=== PATIENT | male | born 1960 | race Caucasian/White ===

== ENCOUNTER → 2016-11-24 | Outpatient (CLI) | payer MEDICARE ==
[~2016-11-24] MED LIST: COREG3.125 MG PO; LO-DOSE ASPIRIN81 MG PO; SUBOXONE 8 MG-1 EACH SL; SYNTHROID175 MCG PO; ZESTRIL2.5 MG PO; ZOCOR20 MG PO
== END ==
LOC: KOH-I 10:11
DX: M54.5 Low back pain (principal); R05 Cough; M25.532 Pain in left wrist; M25.531 Pain in right wrist; M79.643 Pain in unspecified hand; M47.816 Spondylosis without myelopathy or radiculopathy, lumbar region; M19.032 Primary osteoarthritis, left wrist; M19.031 Primary osteoarthritis, right wrist; M19.041 Primary osteoarthritis, right hand; M19.042 Primary osteoarthritis, left hand; M47.814 Spondylosis without myelopathy or radiculopathy, thoracic region; R91.8 Other nonspecific abnormal finding of lung field
CPT/HCPCS: 71020; 72050; 72070; 72110; 73110; 73130

== ENCOUNTER 2017-02-20 22:26 | Emergency (ER) | payer MEDICARE ==
[2017-02-21 00:26] LABS: HEMOGLOBIN 13.5 gm/dl (14.0-17.5); RED BLOOD COUNT 4.3 M/UL (4.20-5.50); WHITE BLOOD COUNT 9.1 K/UL (4.5-11.0)
[2017-02-21 00:48] LABS: BUN/CREATININE RATIO 10 (0-10)
== END 2017-02-21 01:35 | disposition home or self-care (01) ==
LOC: ER1 22:26
PROVIDERS: Emergency Medicine
DX: S00.83XA Contusion of other part of head, initial encounter (principal); I10 Essential (primary) hypertension; W01.0XXA Fall on same level from slipping, tripping and stumbling without subsequent striking against object, initial encounter
CPT/HCPCS: 36415; 70450; 70486; 71010; 72125; 80053; 82140; 82550; 82553; 83874; 83880; 84484; 85025; 93005; 99284; G0480

== ENCOUNTER 2021-01-19 12:17 | Emergency (ER) | payer OTHER ==
[~2021-01-19 12:17] MED LIST changes: +CATAPRES 0.1MG0.1 MG PO; +FLOMAX0.4 MG PO; +KLONOPIN1 MG PO; +NEURONTIN 300300 MG PO; +SEROQUEL300 MG PO; +THERAGRAN M TAB1 EA PO; +TORADOL 10 MG T10 MG PO; +TYLENOL 325MG325 MG PO; +ZYVOX600 MG PO
[2021-01-19 12:59] LABS: HEMOGLOBIN 8.2 gm/dl (14.0-17.5); RED BLOOD COUNT 2.53 M/UL (4.20-5.50); WHITE BLOOD COUNT 8.4 K/UL (4.5-11.0)
[2021-01-19 13:28] LABS: BUN/CREATININE RATIO 8 (0-10)
== END 2021-01-19 18:25 ==
LOC: ER1 12:17
PROVIDERS: Physician Assistant
DX: J96.91 Respiratory failure, unspecified with hypoxia (principal); I50.41 Acute combined systolic (congestive) and diastolic (congestive) heart failure; F17.200 Nicotine dependence, unspecified, uncomplicated; Z20.822 Contact with and (suspected) exposure to COVID-19; E78.5 Hyperlipidemia, unspecified; Z90.49 Acquired absence of other specified parts of digestive tract
CPT/HCPCS: 0240U; 36600; 71045; 80053; 82550; 82553; 82803; 83874; 83880; 84484; 85025; 93005; 99285

== ENCOUNTER 2021-03-28 02:44 | Inpatient (IN) | payer OTHER ==
[~2021-03-28] VITALS: Ht 167.6 cm; Wt 69.5 kg
[2021-03-29] MEDS ORDERED: LIPITOR40 MG PO (00:07)
[2021-03-29] MEDS ORDERED: SYMBICORT 80-41 INHA INH (00:08)
[2021-03-29] MEDS ORDERED: LASIX20 MG PO (00:08)
[2021-03-29 03:47] LABS: HEMOGLOBIN 10.1 gm/dl (14.0-17.5); RED BLOOD COUNT 3.22 M/UL (4.20-5.50); WHITE BLOOD COUNT 6.3 K/UL (4.5-11.0)
[2021-03-29 04:10] LABS: BUN/CREATININE RATIO 9 (0-10)
--- NOTE | 2021-03-29 15:52 | NUR ---
critical lactic acid called to
[2021-03-29 19:04] LABS: ADENOVIRUS F 40/41 Not Detected (Negative); ASTROVIRUS Not Detected (Negative); CAMPYLOBACTER Not Detected (Negative); CLOSTRIDIUM DIFFICILE TOX A/B Not Detected (Negative); CRYPTOSPORIDIUM Not Detected (Negative); E.COLI 0157 Not Detected (Negative); ENTAMOEBA HISTOLYTICA Not Detected (Negative); ENTEROAGGREGATIVE E.COLI (EAEC Not Detected (Negative); ENTEROPATHOGENIC E.COLI (EPEC) Not Detected (Negative); ENTEROTOXIGENIC E.COLI (ETEC) Not Detected (Negative); GIARDIA LAMBLIA Not Detected (Negative); NOROVIRUS GI/GII Not Detected (Negative); PLESIOMONAS SHIGELLOIDES Not Detected (Negative); ROTOVIRUS A Not Detected (Negative); SALMONELLA Not Detected (Negative); SAPOVIRUS Not Detected (Negative); SHIG/ENTEROINVAS.ECOLI (EIEC) Not Detected (Negative); SHIGA-LIK TOX.PRO.E.COLI (STEC Not Detected (Negative); VIBRIO Not Detected (Negative); VIBRIO CHOLERAE Not Detected (Negative); YERSINIA ENTEROCOLITICA Not Detected (Negative)
[2021-03-30 03:16] LABS: HEMOGLOBIN 10.6 gm/dl (14.0-17.5); RED BLOOD COUNT 3.3 M/UL (4.20-5.50); WHITE BLOOD COUNT 7.6 K/UL (4.5-11.0)
[2021-03-30 04:03] LABS: BUN/CREATININE RATIO 6 (0-10)
--- NOTE | 2021-04-01 17:16 | NUR ---
REPORT CALLED TO JOLANTA VELÁSQUEZ ON MED SURG
[2021-04-02 02:58] LABS: HEMOGLOBIN 9.5 gm/dl (14.0-17.5); RED BLOOD COUNT 2.99 M/UL (4.20-5.50); WHITE BLOOD COUNT 8.6 K/UL (4.5-11.0)
--- NOTE | 2021-04-02 21:30 | NUR ---
PATIENT IS REFUSING TELEMETRY MONITORING. SAYS IT "AGGERVATES HIM TO ".
[2021-04-03 09:11] LABS: HEMOGLOBIN 10.6 gm/dl (14.0-17.5); WHITE BLOOD COUNT 9.7 K/UL (4.5-11.0)
[2021-04-03 09:12] LABS: RED BLOOD COUNT 3.29 M/UL (4.20-5.50)
[2021-04-04 09:05] LABS: HEMOGLOBIN 10.8 gm/dl (14.0-17.5); RED BLOOD COUNT 3.39 M/UL (4.20-5.50); WHITE BLOOD COUNT 9.9 K/UL (4.5-11.0)
[2021-04-05] MEDS ORDERED: LOPRESSOR 25 MG25 MG PO (14:32)
== END 2021-04-05 18:42 | disposition home or self-care (01) | DRG 391 ==
LOC: UNDOADMIN 23:55 → MED SURG 4 23:55 → PROG CARE 23:55 → MED SURG 4 04-01 17:30 → PROG CARE 04-01 17:30 → MED SURG 4 04-01 17:30
PROVIDERS: Internal Medicine; ADMIT Internal Medicine
DX: A09 Infectious gastroenteritis and colitis, unspecified (principal); I50.33 Acute on chronic diastolic (congestive) heart failure; E43 Unspecified severe protein-calorie malnutrition; N17.9 Acute kidney failure, unspecified; E87.2 Acidosis; Z20.822 Contact with and (suspected) exposure to COVID-19; F11.20 Opioid dependence, uncomplicated; E86.0 Dehydration; K76.0 Fatty (change of) liver, not elsewhere classified; K21.9 Gastro-esophageal reflux disease without esophagitis; F41.9 Anxiety disorder, unspecified; E03.9 Hypothyroidism, unspecified; F19.10 Other psychoactive substance abuse, uncomplicated; Z79.899 Other long term (current) drug therapy; F17.210 Nicotine dependence, cigarettes, uncomplicated; F10.10 Alcohol abuse, uncomplicated; F15.10 Other stimulant abuse, uncomplicated; N40.0 Benign prostatic hyperplasia without lower urinary tract symptoms; Z90.49 Acquired absence of other specified parts of digestive tract; Z82.49 Family history of ischemic heart disease and other diseases of the circulatory system; E83.42 Hypomagnesemia; E87.6 Hypokalemia; E88.09 Other disorders of plasma-protein metabolism, not elsewhere classified; G89.29 Other chronic pain; D64.9 Anemia, unspecified
CPT/HCPCS: 36415; 76705; 80048; 80053; 82140; 82550; 82553; 83605; 83735; 84484; 85025; 85610; 85730; 87040; 87507; 94640; 94664; 94760; 97116-GP-CQ; 97161; 97166; 97530; J0696; J1940; J3411; J3475; J3480; J7030; J7040